=== PATIENT | male | born 1950 | race Caucasian/White ===

== ENCOUNTER 2016-07-28 08:41 | Outpatient (RCR) | payer MEDICARE, OTHER ==
[~2016-07-28 08:41] MED LIST: ASP81TEC PO; CHLO500T4 PO; DCCL10CRX PO; DULO60CA7 PO; GBPN600T PO; HCT25T GT; LANS30CA14 PO; LORA10CA PO; MONT10TA21 PO; NF-OLOP5ML OD; NFPROP80LA PO; POTA10TA PO; ROSU10TA PO; SULI150T PO; WARF5TAB PO; ZOLP10TA PO
== END 2016-10-14 17:10 | disposition home or self-care (01) ==
LOC: DT 08:41
PROVIDERS: ATTEND Family Medicine
DX: E11.9 Type 2 diabetes mellitus without complications (principal); E78.5 Hyperlipidemia, unspecified; E66.09 Other obesity due to excess calories; Z68.35 Body mass index [BMI] 35.0-35.9, adult; Z71.3 Dietary counseling and surveillance
CPT/HCPCS: 97802